=== PATIENT | female | born 1950 | race Caucasian/White ===

== ENCOUNTER 2023-08-29 05:49 | Day surgery (SDC) | payer MEDICARE, OTHER ==
[~2023-08-29] VITALS: Ht 167.6 cm; Wt 105.5 kg
[~2023-08-29 05:49] MED LIST: ALORA0.025 MG/2 TD; ASPIRIN 81M81 MG/TA2 PO; HUMALOG100 U/ML SQ; LIPITOR20 MG PO; LR 1,000 ML IV SCH; MULTI VITAMINS1 TAB PO; Ondansetron 4 MG/2 ML VIAL IV PRN; PRINIVIL2.5 MG PO; STOOL SOFTENER100 M2 PO; TRESIBA FL100 UNIT/1 SQ; TUMS500 MG PO; VITAMIN D31000 I1 PO
[2023-08-29] MEDS ORDERED: Sod Phosphates Rectal Enema 133 ML bottle RC ONE (06:30)
--- NOTE | 2023-08-29 06:33 | NUR ---
0605 Patient ambulatory to [facility] with a steady gait, breathing even and unlabored. Patient is accompanied by her . Patient reports she is still having formed stool. Dr. Gillis notified. Received a verbal order to give patient an enema which may be repeated once. Patient instructed in administration of enema. She will self administer.
[2023-08-29] MEDS ORDERED: PRILOSEC 20MG20 MG PO (09:42)
[2023-08-29] MEDS ORDERED: VOLTAREN GEL 1%1 TU (09:43)
[2023-08-29] MEDS ORDERED: FOSAMAX 70MG TA70 MG PO (09:45)
--- NOTE | 2023-08-29 10:46 | NUR ---
0710 Patient self administered a fleet enema with limited results. She continues to have thin strands of formed stool. Dr. Gillis updated. Received a verbal order to give a soapsuds enema, stating to repeat if needed. Patient tolerated enema well, held fluid in colon for 10-15 min and had dark brown liquid stool out with peices of formed stool. 2nd soapsuds enama administered. Patient tolerated well. Continues to have cloudy brown liquid out. Dr. Gillis gave a verbal order to give a third soapsud enema. Again patient tolerated well, holding liquid in colon for >15 minutes. Patient had cloudy brown stool out after 3rd soapsuds enema. Dr. Gillis in room to speak with patient about rescheduling procedure for another day.
[2023-08-29 10:57] VITALS: BP 123/75; PULSE 66; TEMP 97.5
== END 2023-08-29 10:30 | disposition home or self-care (01) ==
LOC: SDCO 05:49
DX: Z12.11 Encounter for screening for malignant neoplasm of colon (principal); Z53.9 Procedure and treatment not carried out, unspecified reason; E66.9 Obesity, unspecified; Z80.0 Family history of malignant neoplasm of digestive organs

== ENCOUNTER → 2023-10-03 | Day surgery (SDC) | payer MEDICARE, OTHER ==
[~2023-10-03] VITALS: Ht 167.6 cm; Wt 104.8 kg
[~2023-10-03] MED LIST changes: +FOSAMAX 70MG TA70 MG PO; +Glycopyrrolate 0.2 MG/ML 1 ML VIAL IV ONE; +LR 1,000 ML IV PRN; -LR 1,000 ML IV SCH; +Lidocaine PF 2% (20 MG/ML) 5 ML VIAL IV ONE; +PRILOSEC 20MG20 MG PO; +Propofol 10 MG/ML 10 ML VIAL IV ONE; +VOLTAREN GEL 1%1 TU
[2023-10-03 14:23] VITALS: BP 111/66; PULSE 69
== END ==
LOC: SDCO 06:53
DX: Z12.11 Encounter for screening for malignant neoplasm of colon (principal); K57.30 Diverticulosis of large intestine without perforation or abscess without bleeding; Z80.0 Family history of malignant neoplasm of digestive organs; E10.22 Type 1 diabetes mellitus with diabetic chronic kidney disease; I12.9 Hypertensive chronic kidney disease with stage 1 through stage 4 chronic kidney disease, or unspecified chronic kidney disease; N18.9 Chronic kidney disease, unspecified; G47.9 Sleep disorder, unspecified; K21.9 Gastro-esophageal reflux disease without esophagitis; E66.9 Obesity, unspecified; Z68.37 Body mass index [BMI] 37.0-37.9, adult; Z79.4 Long term (current) use of insulin; Z79.899 Other long term (current) drug therapy
CPT/HCPCS: J2704; J7120

== ENCOUNTER → 2024-03-18 | Outpatient (CLI) | payer MEDICARE, OTHER ==
[~2024-03-18] MED LIST changes: -Glycopyrrolate 0.2 MG/ML 1 ML VIAL IV ONE; +Iohexol 300 - 10 ML VIAL ONE; -LR 1,000 ML IV PRN; +Lidocaine PF 2% (20 MG/ML) 2 ML VIAL ONE; -Lidocaine PF 2% (20 MG/ML) 5 ML VIAL IV ONE; -Ondansetron 4 MG/2 ML VIAL IV PRN; -Propofol 10 MG/ML 10 ML VIAL IV ONE
== END ==
LOC: MHCPAIN 08:10
DX: M54.16 Radiculopathy, lumbar region (principal); M81.0 Age-related osteoporosis without current pathological fracture; M43.17 Spondylolisthesis, lumbosacral region; M47.816 Spondylosis without myelopathy or radiculopathy, lumbar region; M96.1 Postlaminectomy syndrome, not elsewhere classified; N18.9 Chronic kidney disease, unspecified; E10.9 Type 1 diabetes mellitus without complications; E78.5 Hyperlipidemia, unspecified
CPT/HCPCS: G0463; J1100; Q9967

== ENCOUNTER → 2024-03-19 | Outpatient (CLI) | payer MEDICARE, OTHER ==
[~2024-03-19] MED LIST changes: -Iohexol 300 - 10 ML VIAL ONE; -Lidocaine PF 2% (20 MG/ML) 2 ML VIAL ONE
== END ==
LOC: MHCPAIN 08:05
DX: M54.17 Radiculopathy, lumbosacral region (principal); M54.50 Low back pain, unspecified; M96.1 Postlaminectomy syndrome, not elsewhere classified